=== PATIENT | male | born 1970 | race African-American/Black ===

== ENCOUNTER 2023-06-30 08:01 | Emergency (ER) | payer SELFPAY ==
[2023-06-30] MEDS ORDERED: Iopamidol 612 MG/ML 100 ML Bottle IVPUSH ONE (09:09)
[2023-06-30] MEDS ORDERED: Sodium Chloride 0.9% 10 ML Syringe FLUSH ONE (09:10)
[2023-06-30] MEDS ORDERED: Metoclopramide 10 MG/2 ML SDV IVPUSH ONE (09:22)
[2023-06-30] MEDS ORDERED: HYDROmorphone 0.5 MG/0.5 ML Syringe IVPUSH ONE (09:23)
== END 2023-06-30 10:40 | disposition home or self-care (01) ==
LOC: JD.ED 08:01
DX: S22.42XA Multiple fractures of ribs, left side, initial encounter for closed fracture (principal); F17.210 Nicotine dependence, cigarettes, uncomplicated; W01.198A Fall on same level from slipping, tripping and stumbling with subsequent striking against other object, initial encounter
CPT/HCPCS: 71260; 96374; 96375; 99283; J1170; J2765; J3490; Q9967